=== PATIENT | male | born 1980 | race Caucasian/White ===

== ENCOUNTER 2016-08-22 11:58 | Emergency (ER) | payer BC, OTHER ==
[2016-08-22] MEDS ORDERED: Sodium Chloride 0.9% 10 ML Syringe FLUSH SCH (12:30)
[2016-08-22 12:35] LABS: CHLORIDE,CL 103 mmol/L (98-107); SODIUM,NA 139 mmol/L (136-145)
--- NOTE | 2016-08-22 13:14 | EDM.PDOC ---
ED HPI GENERAL MEDICAL PROBLEM - General Chief Complaint: Neuro Symptoms/Deficits Stated Complaint: left tongue and arm numb, WALTER, dizzy Time Seen by Provider: 08/22/16 12:19 Source of Information: Reports: Patient History Limitations: Reports: No limitations - History of Present Illness INITIAL COMMENTS - FREE TEXT/NARRATIVE: Patient presented to ER with complaint of left arm numbness, numbness of left side of tongue, seeing spots, and feeling dizzy/lightheaded. This began around 0830 this morning. At one point he had hard time seeing. Drove self to ER. Says symptoms have improved and at time of arrival had only headache remaining. Took Tylenol earlier. Initially evaluated by nurse and stroke code called. Patient taken right to CT. Once he returned from CT additional history collected. Patient says that he had similar episode around six months ago. Had CT scan of head at [facility] and was told to see a specialist, which he did not do. He could not recall why they wanted him to see specialist. This was not mentioned during initial intake evaluation when he first came to ER. Additionally, he has had similar episodes over the past 15 or so years, starting at about age 20. All episodes involve similar symptoms, including headache (described as being bilateral/posterior in location), numbness and weakness of arms (more so than legs), and visual changes. He describes vision changes as being like there are "clouds" in vision. Has not been seen by an MD for this prior to 6 months ago. No mention of other visits/testing from patient. Past medical history overall unremarkable otherwise. Employed at [employer]. Nothing specific triggers episodes, including change in positions, level of activity, or bending over. Nothing specific helps them. They last anywhere from 30-60min to 3 days. Family history includes strokes in father starting around age 70, and an uncle that from a brain "blood vessel issue" at age 35. At times he has felt as though he may pass out during an episode, but as of yet has not done so. Episodes have happened while patient has been driving, and during work. He manages to continue to work despite having symptoms. Non-smoker but did smoke in the past. Occipital Headache Pain Score (Numeric/FACES): 5 - Related Data Allergies Allergy/AdvReac Type Severity Reaction Status Date / Time No Known Allergies Allergy Verified 08/22/16 12:09 Home Meds: Home Meds Aspirin 81 mg PO BRK 08/22/16 [History] Omeprazole Magnesium [Prilosec Otc] 20 mg PO DAILY 08/22/16 [History] Past Medical History Gastrointestinal History: Reports: GERD Neurological History: Reports: Other (see below) (See HPI) Social & Family History - Tobacco Use Smoking Status *Q: Former Smoker Used Tobacco, but Quit: Yes Month Tobacco Last Used: unk ED ROS GENERAL - Review of Systems Review Of Systems: See Below Constitutional: Reports: no symptoms HEENT: Reports: Vision change (See HPI). Denies: Dental pain, Ear pain, Eye pain, Nose pain, Sinus problem, Vertigo Respiratory: Reports: No Symptoms Cardiovascular: Reports: No symptoms GI/Abdominal: Reports: No symptoms : Reports: no symptoms Musculoskeletal: Reports: no symptoms Skin: Reports: no symptoms Neurological: Reports: Dizziness, Headache, Numbness, Paresthesia. Denies: Confusion, Syncope, Tingling, Trouble Speaking, Difficulty Walking, Weakness, Change in Speech, Gait Disturbance Psychiatric: Reports: No symptoms ED EXAM, NEURO - Physical Exam Exam: See Below Exam Limited By: No limitations General Appearance: alert, WD/WN, no apparent distress Eye Exam: bilateral eye: EOMI, normal inspection, PERRL Ears: normal external exam, normal canal, normal TMs Nose: normal inspection Throat/Mouth: Normal inspection, Normal oropharynx, Normal voice, No airway compromise Head Exam: atraumatic, normocephalic Neck: normal inspection, supple, non-tender, full range of motion Respiratory/Chest: no respiratory distress, lungs clear, normal breath sounds, no accessory muscle use Cardiovascular: regular rate, rhythm, no edema, bradycardia. No: systolic murmur GI/Abdominal: Normal Bowel Sounds, Soft, Non-Tender Neurological: alert, normal mood/affect, normal dorsiflexion, CN II-XII intact, normal plantar flexion, normal gait, normal reflexes, no motor/sensory deficits , oriented x 3 DTR: 2+: bicep (R), bicep (L), patella (R), patella (L) Back Exam: No: CVA tenderness (L), CVA tenderness (R) Extremities: normal inspection, normal range of motion, non-tender, no pedal edema, normal capillary refill Psychiatric: normal affect, normal mood Skin Exam: Warm, Dry, Intact, Normal color EKG INTERPRETATION EKG Date: 08/22/16 Time: 12:09 Rhythm: other (Sinus Bradycardia) Rate (beats/min): 49 Weikert: normal P-wave: present QRS: normal ST-T: normal QT: normal Comparison: NA - no prior EKG Course - Vital Signs Last Recorded V/S: Last Vital Signs Temp 36.6 C 08/22/16 12:10 Pulse 53 L 08/22/16 12:39 Resp 14 08/22/16 12:39 BP 134/61 08/22/16 12:39 Pulse Ox 100 08/22/16 12:39 - Orders/Labs/Meds Orders: Active Orders 24 hr Category Date Time Status EKG Documentation Completion [RC] ASDIRECTED Care 08/22/16 12:08 Active Oxygen Therapy, ED [RC] ASDIRECTED Care 08/22/16 12:15 Active Peripheral IV Care [RC] . DIRECTED Care 08/22/16 12:15 Active Head wo Cont [CT] Stat Exams 08/22/16 12:02 Taken PROLACTIN [REF] Stat Lab 08/22/16 12:10 Received URINALYSIS W/MICROSCOPIC [UA W/MICROSCOPIC] [URIN] Stat Lab 08/22/16 12:05 Uncollected Sodium Chloride 0.9% [Saline Flush] Med 08/22/16 12:30 Active 10 ml FLUSH ASDIRECTED Medication Orders Sodium Chloride (Saline Flush) 10 ml FLUSH ASDIRECTED SEGUNDO Labs: Laboratory Tests 08/22/16 08/22/16 08/22/16 Range/Units 12:10 12:10 12:10 WBC 6.7 (4.0-10.2) K/uL RBC 5.03 (4.33-5.41) M/uL Hgb 15.1 (13.1-16.8) g/dL Hct 43.1 (39.0-49.0) % MCV 85.7 (84.0-98.0) fL MCH 30.0 (28.2-33.3) pg MCHC 35.0 (31.7-36.0) g/dL RDW 13.3 (11.2-14.1) % Plt Count 188 (150-350) K/uL Neut % (Auto) 55.8 (45.0-80.0) % Lymph % (Auto) 34.5 (10.0-50.0) % Rapides % (Auto) 7.9 (2.0-14.0) % Eos % (Auto) 1.2 (0.0-5.0) % Baso % (Auto) 0.6 (0.0-2.0) % Neut # (Auto) 3.76 (1.40-7.00) K/uL Lymph # (Auto) 2.32 (0.50-3.50) K/uL Rapides # (Auto) 0.53 (0.00-1.00) K/uL Eos # (Auto) 0.08 (0.00-0.50) K/uL Baso # (Auto) 0.04 (0.00-0.20) K/uL PT 11.4 (9.8-11.7) SEC INR 1.1 APTT 25.9 (23.5-30.0) SEC D-Dimer, Quantitative (0-400) ng/mL Sodium (136-145) mmol/L Potassium (3.5-5.1) mmol/L Chloride (98-107) mmol/L Carbon Dioxide (21.0-32.0) mmol/L BUN (7-18) mg/dL Creatinine (0.51-1.17) mg/dL Est Cr Clr Drug Dosing mL/min Estimated GFR (MDRD) mL/min Glucose (74-106) mg/dL Calcium (8.5-10.1) mg/dL Magnesium (1.8-2.4) mg/dL Total Bilirubin (0.2-1.0) mg/dL AST (15-37) U/L ALT (12-78) U/L Alkaline Phosphatase (46-116) IU/L Creatine Kinase (26-308) U/L Creatine Kinase Index (0.0-2.5) % CK-MB (CK-2) (0.00-3.60) ng/mL Troponin I (0.000-0.056) ng/mL Ctr-O-Viafuebddof Pept (0-125) pg/mL Total Protein (6.4-8.2) g/dL Albumin (3.4-5.0) g/dL 08/22/16 08/22/16 Range/Units 12:10 12:10 WBC (4.0-10.2) K/uL RBC (4.33-5.41) M/uL Hgb (13.1-16.8) g/dL Hct (39.0-49.0) % MCV (84.0-98.0) fL MCH (28.2-33.3) pg MCHC (31.7-36.0) g/dL RDW (11.2-14.1) % Plt Count (150-350) K/uL Neut % (Auto) (45.0-80.0) % Lymph % (Auto) (10.0-50.0) % Rapides % (Auto) (2.0-14.0) % Eos % (Auto) (0.0-5.0) % Baso % (Auto) (0.0-2.0) % Neut # (Auto) (1.40-7.00) K/uL Lymph # (Auto) (0.50-3.50) K/uL Rapides # (Auto) (0.00-1.00) K/uL Eos # (Auto) (0.00-0.50) K/uL Baso # (Auto) (0.00-0.20) K/uL PT (9.8-11.7) SEC INR APTT (23.5-30.0) SEC D-Dimer, Quantitative < 100 (0-400) ng/mL Sodium 139 (136-145) mmol/L Potassium 4.3 (3.5-5.1) mmol/L Chloride 103 (98-107) mmol/L Carbon Dioxide 29.1 (21.0-32.0) mmol/L BUN 15 (7-18) mg/dL Creatinine 1.01 (0.51-1.17) mg/dL Est Cr Clr Drug Dosing 117.56 mL/min Estimated GFR (MDRD) > 60 mL/min Glucose 107 H (74-106) mg/dL Calcium 8.8 (8.5-10.1) mg/dL Magnesium 1.8 (1.8-2.4) mg/dL Total Bilirubin 0.5 (0.2-1.0) mg/dL AST 23 (15-37) U/L ALT 35 (12-78) U/L Alkaline Phosphatase 62 (46-116) IU/L Creatine Kinase 206 (26-308) U/L Creatine Kinase Index 0.5 (0.0-2.5) % CK-MB (CK-2) 1.00 (0.00-3.60) ng/mL Troponin I 0.000 (0.000-0.056) ng/mL Htk-S-Qgeawbrurvk Pept 36 (0-125) pg/mL Total Protein 7.8 (6.4-8.2) g/dL Albumin 4.5 (3.4-5.0) g/dL Meds: Medications Generic Name Dose Route Start Last Admin Trade Name Greg PRN Reason Stop Dose Admin Sodium Chloride 10 ml 08/22/16 12:30 Saline Flush FLUSH ASDIRECTED SEGUNDO - Radiology Interpretation Free Text/Narrative:: Radiology reviewed CT and noted type 1 Chiari malformation and felt that this could be cause of patient's intermittent symptoms. - Re-Assessments/Exams Free Text/Narrative Re-Assessment/Exam: 08/22/16 13:33 Patient observed for length of time. Noted to have heart rate that varied from 48-49 to 70. Glascow score/NIH stroke scale unremarkable. Continued to be free of complaints other than headache that he rated as a "3". Phone call placed to [facility]. Patient discussed with both Dr. Duque/Neurosurgery and (Neurology). Given that patient has no objective focal deficits or cranial nerve dysfunction, OK to treat as outpatient. Plan recommended was to arrange for MRI of head/Cspine as well as to get Neurology appointment. Neurology is to set patient up with Neurosurgery as needed. Free Text/Narrative Re-Assessment/Exam: 08/22/16 14:17 Patient ambulated without problem. Declines any medication for residual mild headache. Mild subjective feeling of light-headedness when standing but otherwise feels fine. No return of earlier complaints. Departure - Departure Time of Disposition: 14:13 Disposition: Home, Self-Care 01 Condition: good Clinical Impression: Chiari I malformation, Changes in vision, Paresthesia of upper extremity, Bradycardia Headache Qualifiers: Headache type: other headache syndrome Qualified Code(s): G44.89 - Other headache syndrome - Discharge Information Instructions: Chiari Malformation Referrals: PCP,Unknown [Ordering Only Provider] - Forms: ED Department Discharge Additional Instructions: Follow up as scheduled for MRI study of head/neck as well as with clinic. Referral to Neurology at [facility] made from ER. They are to contact you and set up an appointment for further evaluation. Do not drive or operate heavy machinery if you are having an episode. Follow up in ER if you have sudden worsening symptoms. - My Orders Last 24 Hours: My Active Orders 08/22/16 12:02 Head wo Cont [CT] Stat 08/22/16 12:05 URINALYSIS W/MICROSCOPIC [UA W/MICROSCOPIC] [URIN] Stat 08/22/16 12:08 EKG Documentation Completion [RC] ASDIRECTED 08/22/16 12:10 PROLACTIN [REF] Stat 08/22/16 12:15 Oxygen Therapy, ED [RC] ASDIRECTED Peripheral IV Care [RC] . DIRECTED 08/22/16 12:30 Sodium Chloride 0.9% [Saline Flush] 10 ml FLUSH ASDIRECTED - Assessment/Plan Last 24 Hours: My Active Orders 08/22/16 12:02 Head wo Cont [CT] Stat 08/22/16 12:05 URINALYSIS W/MICROSCOPIC [UA W/MICROSCOPIC] [URIN] Stat 08/22/16 12:08 EKG Documentation Completion [RC] ASDIRECTED 08/22/16 12:10 PROLACTIN [REF] Stat 08/22/16 12:15 Oxygen Therapy, ED [RC] ASDIRECTED Peripheral IV Care [RC] . DIRECTED 08/22/16 12:30 Sodium Chloride 0.9% [Saline Flush] 10 ml FLUSH ASDIRECTED
[2016-08-22 16:35] VITALS: BP 120/80
== END 2016-08-22 14:52 | disposition home or self-care (01) ==
LOC: LL.ED 11:58
DX: G93.5 Compression of brain (principal); H53.9 Unspecified visual disturbance; R20.2 Paresthesia of skin; R00.1 Bradycardia, unspecified; Z79.82 Long term (current) use of aspirin; Z87.891 Personal history of nicotine dependence
CPT/HCPCS: 36000; 36415; 70450; 80053; 82550; 82553; 83735; 83880; 84146; 84484; 85025; 85379; 85610; 85730; 93005; 99285

== ENCOUNTER 2020-12-15 13:56 | Emergency (ER) | payer OTHER ==
--- NOTE | 2020-12-15 14:18 | EDM.PDOC ---
ED HPI GENERAL MEDICAL PROBLEM - General Chief Complaint: Respiratory Problem Stated Complaint: fumes/smoke inhaled Time Seen by Provider: 12/15/20 14:05 Source of Information: Reports: Patient History Limitations: Reports: No Limitations - History of Present Illness INITIAL COMMENTS - FREE TEXT/NARRATIVE: Patient comes emergency department today from the local [facility] with concerns of an inhalation injury. This patient about 2 hours ago was at work when a lithium ion battery got overheated and started to smoke. He inhaled the fumes through his nose as well as his mouth. He had some burning searing sensation to his left nares as well as his throat. He has no difficulty breathing shortness of breath cough or congestion. No pain in his chest. No weakness dizziness lightheadedness. He has been able to eat and drink. He has no drooling. - Related Data Allergies Allergy/AdvReac Type Severity Reaction Status Date / Time No Known Allergies Allergy Verified 12/15/20 13:58 Home Meds: Home Meds Aspirin 81 mg PO BRK 08/22/16 [History] Omeprazole Magnesium [Prilosec Otc] 20 mg PO DAILY 08/22/16 [History] Past Medical History HEENT History: Reports: Impaired Vision Cardiovascular History: Reports: None Respiratory History: Reports: None Gastrointestinal History: Reports: GERD Genitourinary History: Reports: None Musculoskeletal History: Reports: Back Pain, Chronic Neurological History: Reports: Other (See Below) Psychiatric History: Reports: None Endocrine/Metabolic History: Reports: None Hematologic History: Reports: None Oncologic (Cancer) History: Reports: None Dermatologic History: Reports: None - Past Surgical History Musculoskeletal Surgical History: Reports: Other (See Below) Social & Family History - Family History Neurological: Reports: Cerebral Aneurysms, CVA, Other (See Below) Other Neurological Family History: father and uncle ED ROS GENERAL - Review of Systems Review Of Systems: Comprehensive ROS is negative, except as noted in HPI. ED EXAM, GENERAL - Physical Exam Exam: See Below Exam Limited By: No Limitations General Appearance: Alert, WD/WN, No Apparent Distress Eye Exam: Bilateral Eye: EOMI, PERRL Ears: Normal External Exam, Normal TMs Nose: Normal Inspection, Normal Mucosa, No Blood Throat/Mouth: Normal Inspection, Normal Lips, Normal Teeth, Normal Gums, Normal Oropharynx, Normal Voice, No Airway Compromise Head: Atraumatic, Normocephalic Neck: Normal Inspection, Supple, Non-Tender, Full Range of Motion Respiratory/Chest: No Respiratory Distress, Lungs Clear, Normal Breath Sounds, No Accessory Muscle Use, Chest Non-Tender Cardiovascular: Normal Peripheral Pulses, Regular Rate, Rhythm GI/Abdominal: Normal Bowel Sounds, Soft, Non-Tender (Male) Exam: Deferred Rectal (Males) Exam: Deferred Back Exam: Normal Inspection, Full Range of Motion Extremities: Normal Inspection, Normal Range of Motion, Non-Tender, No Pedal Edema, Normal Capillary Refill Neurological: Alert, Oriented, CN II-XII Intact, Normal Cognition, Normal Gait, No Motor/Sensory Deficits Psychiatric: Normal Affect, Normal Mood Skin Exam: Warm, Dry, Intact, Normal Color, No Rash Lymphatic: No Adenopathy Course - Vital Signs Last Recorded V/S: Last Vital Signs Temp 98.4 F 12/15/20 14:00 Pulse 64 12/15/20 14:30 Resp 18 12/15/20 14:15 BP 128/81 12/15/20 14:30 Pulse Ox 96 12/15/20 14:30 - Re-Assessments/Exams Free Text/Narrative Re-Assessment/Exam: I did speak with poison control. This was a lithium ion vapor that he inhaled. Is there is no signs of burn to the face his throat or nares and this is just most likely an irritant there is not much to do for it at this time. Drink lots of water and rinse the nares. I discussed with the patient that symptomatic management such as irrigating his throat some [id number] Maalox or Mylanta to help with the irritation of his throat and rinses sinuses with the irritation to help make his nose flush out the irritate. Anything different to recheck. He was comfortable with this plan and his questions answered. Departure - Departure Time of Disposition: 14:38 Disposition: Home, Self-Care 01 Clinical Impression: Inhalation of noxious fumes Qualifiers: Encounter type: initial encounter Injury intent: accidental or unintentional Qualified Code(s): T59.91XA - Toxic effect of unspecified gases, fumes and vapors, accidental (unintentional), initial encounter - Discharge Information Instructions: Chemical Inhalation Injury, Adult Referrals: Aurora Rodríguez PA [Primary Care Provider] - Forms: ED Department Discharge Additional Instructions: Make sure and drink plenty of fluids today. Maalox or Mylanta swish and swallow. OTC Nasal saline rinse or gel for discomfort. Return to the ED if new or worsening symptoms. Contact poison control if any continued symptoms. They are aware of your visit today. Sepsis Event Note (ED) - Evaluation Sepsis Screening Result: No Definite Risk - Focused Exam Vital Signs: Vital Signs Temp Pulse Resp BP Pulse Ox 12/15/20 14:30 64 128/81 96 12/15/20 14:15 67 18 128/79 95 12/15/20 14:00 98.4 F 63 18 126/84 97
[2020-12-15 15:07] VITALS: BP 128/81; PULSE 64
== END 2020-12-15 14:45 | disposition home or self-care (01) ==
LOC: LL.ED 13:56
DX: T59.891A Toxic effect of other specified gases, fumes and vapors, accidental (unintentional), initial encounter (principal); K21.9 Gastro-esophageal reflux disease without esophagitis; Z79.82 Long term (current) use of aspirin; Z79.899 Other long term (current) drug therapy
CPT/HCPCS: 99283

== ENCOUNTER 2021-08-21 18:41 | Observation (INO) | payer BC, OTHER ==
[2021-08-21] MEDS ORDERED: GI Cocktail Oral Solution 30 ML PO ONE (18:54)
[2021-08-21] MEDS ORDERED: Pantoprazole 40 MG Vial IVPUSH ONE (18:55)
[2021-08-21] MEDS ORDERED: Sodium Chloride 0.9% 1,000 ML IV ONE ×2 (18:56→20:01)
[2021-08-21] MEDS ORDERED: Ondansetron 4 MG/2 ML SDV IVPUSH ONE (18:56)
[2021-08-21] MEDS: Sodium Chloride 0.9% 10 ML Syringe FLUSH PRN ×2 (19:01→21:12)
[2021-08-21 19:35] LABS: ANION GAP 13.3 meq/L (7-15); CHLORIDE,CL 99 mmol/L (98-107); SODIUM,NA 138 mmol/L (136-145)
[2021-08-21] MEDS ORDERED: HYDROmorphone 0.5 MG/0.5 ML Syringe IVPUSH ONE (20:45)
[2021-08-21] MEDS ORDERED: Promethazine 25 MG/ML SDV IM ONE (20:45)
[2021-08-21 22:46] VITALS: PULSE 55
[2021-08-21 23:05] VITALS: BP 164/88
== END 2021-08-21 22:30 | disposition home or self-care (01) ==
LOC: LL.ED 18:41 → LL.MS 20:30
PROVIDERS: ADMIT Emergency Medicine; ATTEND Emergency Medicine
DX: E86.0 Dehydration (principal); E83.42 Hypomagnesemia; F17.210 Nicotine dependence, cigarettes, uncomplicated; H54.7 Unspecified visual loss; R10.9 Unspecified abdominal pain; K21.9 Gastro-esophageal reflux disease without esophagitis; Z79.899 Other long term (current) drug therapy
CPT/HCPCS: 36415; 74019; 80053; 82150; 83605; 83690; 83735; 85025; 85610; 96365; 96372; 96375; 99284; 99285; A9270; C9113; J1170; J2405; J2550; J3475; J3490; J7030

== ENCOUNTER 2025-01-02 11:11 | Inpatient (IN) | payer BC ==
[2025-01-02] MEDS: Ondansetron 4 MG/2 ML SDV IVPUSH ONE (11:35)
[2025-01-02] MEDS: Aluminum Hydroxide/Magnesium Hydroxide/Simethicone Susp 30 ML Cup PO ONE (11:41)
[2025-01-02] MEDS: Lidocaine 2% Viscous Solution 15 ML UD PO ONE (11:41)
[2025-01-02 11:45] LABS: BASOPHILS ABSOLUTE AUTO 0.04 K/uL (0.00-0.20); BASOPHILS PERCENT AUTO 0.6 % (0.0-2.0); EOSINOPHILS ABSOLUTE AUTO 0.02 K/uL (0.00-0.50); EOSINOPHILS PERCENT AUTO 0.3 % (0.0-5.0); IMMATURE GRAN ABSOLUTE AUTO 0.01 10^3/uL (0.00-0.04); IMMATURE GRAN PERCENT AUTO 0.1 % (0.0-0.4); LYMPHOCYTES ABSOLUTE AUTO 1.48 K/uL (0.50-3.50); LYMPHOCYTES PERCENT AUTO 20.9 % (10.0-50.0); MONOCYTES ABSOLUTE AUTO 0.54 K/uL (0.00-1.00); MONOCYTES PERCENT AUTO 7.6 % (2.0-14.0); NEUTROPHILS ABSOLUTE AUTO 4.98 K/uL (1.40-7.00); NEUTROPHILS PERCENT AUTO 70.5 % (45.0-80.0); PLATELET COUNT,PLT 297 K/uL (150-350); RED BLOOD CELL COUNT 5.27 M/uL (4.33-5.41); RED CELL DISTRIBUTION WIDTH 12.5 % (11.2-14.1); WHITE BLOOD CELL COUNT,WBC 7.1 K/uL (4.0-10.2)
[2025-01-02 12:03] LABS: ALANINE AMINOTRANSFERASE,ALT 42.0 U/L (12-78); ASPARTATE AMNIOTRANSFERASE,AST 27.0 U/L (15-37); BILIRUBIN TOTAL 0.8 mg/dL (0.2-1.0); BLOOD UREA NITROGEN,BUN 8.0 mg/dL (7-18); CARBON DIOXIDE,CO2 25.1 mmol/L (21.0-32.0); CHLORIDE,CL 101.0 mmol/L (98-107); CREATININE 1.03 mg/dL (0.51-1.17); EST CRCL DRUG DOSING (CG) 106.41 mL/min; GLUCOSE RANDOM 142.0 mg/dL (70-99); POTASSIUM,K 3.7 mmol/L (3.5-5.1); PROTEIN TOTAL,TP 8.2 g/dL (6.4-8.2); SODIUM,NA 139.0 mmol/L (136-145)
[2025-01-02 12:04] LABS: ESTIMATED GFR 92.0 mL/min (>=60)
[2025-01-02] MEDS: Promethazine 25 MG/ML SDV IM ONE (12:46)
[2025-01-02] MEDS: Ketorolac 15 MG/ML SDV IVPUSH ONE (12:48)
[2025-01-02] MEDS: Ondansetron 4 MG/2 ML SDV ONE (13:03)
[2025-01-02 14:37] LABS: APPEARANCE,URINE CLEAR; GLUCOSE,URINE NEGATIVE (NEGATIVE); OCCULT BLOOD,URINE NEGATIVE (NEGATIVE)
[2025-01-02 14:54] LABS: AMPHETAMINES SCREEN, URINE NEGATIVE (NEGATIVE); COCAINE METABOLITES,URINE NEGATIVE (NEGATIVE); EDDP,URINE SCREEN NEGATIVE (NEGATIVE); METHAMPHETAMINES SCREEN, URINE NEGATIVE (NEGATIVE); OXYCODONE SCREEN,URINE NEGATIVE (NEGATIVE); TCA SCREEN,URINE NEGATIVE (NEGATIVE); THC SCREEN,URINE 50 NG/ML POSITIVE (NEGATIVE)
[2025-01-02 14:55] LABS: BUPRENORPHINE SCREEN,URINE NEGATIVE (NEGATIVE)
[2025-01-02 15:17] LABS: SQUAMOUS EPITHELIAL CELLS,UR NOT SEEN /HPF (NOT SEEN)
[2025-01-02] MEDS: Prochlorperazine 5 MG in Sodium Chloride 0.9% 100 ML IV PRN (16:18)
[2025-01-02] MEDS: Sucralfate Suspension 1 GM/10 ML Cup PO SCH (17:20)
[2025-01-02] MEDS ORDERED: Iopamidol 612 MG/ML 100 ML Bottle IVPUSH STA (19:19)
[2025-01-03 08:49] LABS: BASOPHILS ABSOLUTE AUTO 0.03 K/uL (0.00-0.20); BASOPHILS PERCENT AUTO 0.4 % (0.0-2.0); EOSINOPHILS ABSOLUTE AUTO 0.03 K/uL (0.00-0.50); EOSINOPHILS PERCENT AUTO 0.4 % (0.0-5.0); IMMATURE GRAN ABSOLUTE AUTO 0.01 10^3/uL (0.00-0.04); IMMATURE GRAN PERCENT AUTO 0.1 % (0.0-0.4); LYMPHOCYTES ABSOLUTE AUTO 2.00 K/uL (0.50-3.50); LYMPHOCYTES PERCENT AUTO 29.4 % (10.0-50.0); MONOCYTES ABSOLUTE AUTO 0.48 K/uL (0.00-1.00); MONOCYTES PERCENT AUTO 7.0 % (2.0-14.0); NEUTROPHILS ABSOLUTE AUTO 4.26 K/uL (1.40-7.00); NEUTROPHILS PERCENT AUTO 62.7 % (45.0-80.0); PLATELET COUNT,PLT 242 K/uL (150-350); RED BLOOD CELL COUNT 4.75 M/uL (4.33-5.41); RED CELL DISTRIBUTION WIDTH 12.6 % (11.2-14.1); WHITE BLOOD CELL COUNT,WBC 6.8 K/uL (4.0-10.2)
[2025-01-03 09:41] LABS: BLOOD UREA NITROGEN,BUN 7.0 mg/dL (7-18); CARBON DIOXIDE,CO2 30.5 mmol/L (21.0-32.0); CHLORIDE,CL 103.0 mmol/L (98-107); CREATININE 1.09 mg/dL (0.51-1.17); EST CRCL DRUG DOSING (CG) 100.55 mL/min; GLUCOSE RANDOM 130.0 mg/dL (70-99); POTASSIUM,K 4.3 mmol/L (3.5-5.1); SODIUM,NA 139.0 mmol/L (136-145); TSH ULTRASENSITIVE 0.301 mIU/mL (0.358-3.740)
[2025-01-03 09:58] LABS: ESTIMATED GFR 86.0 mL/min (>=60)
[2025-01-03] MEDS: Ketorolac 15 MG/ML SDV IVPUSH PRN (15:00)
[2025-01-03] MEDS: Ondansetron 4 MG/2 ML SDV IVPUSH PRN (16:20)
[2025-01-03 17:48] VITALS: BP 124/84; PULSE 77
== END 2025-01-03 17:10 | disposition home or self-care (01) | DRG 139 ==
LOC: LL.ED 11:11 → LL.MS 14:13
PROVIDERS: ADMIT Emergency Medicine; ATTEND Emergency Medicine
DX: J18.9 Pneumonia, unspecified organism (principal); I10 Essential (primary) hypertension; R79.89 Other specified abnormal findings of blood chemistry; K21.9 Gastro-esophageal reflux disease without esophagitis; H54.7 Unspecified visual loss; M54.9 Dorsalgia, unspecified; G89.29 Other chronic pain; E86.0 Dehydration; R07.9 Chest pain, unspecified; R00.1 Bradycardia, unspecified; E05.90 Thyrotoxicosis, unspecified without thyrotoxic crisis or storm; Z79.899 Other long term (current) drug therapy; Z88.0 Allergy status to penicillin; Z88.8 Allergy status to other drugs, medicaments and biological substances
CPT/HCPCS: 36415; 71046; 71260; 74177; 80048; 80053; 80305-QW; 81001; 82150; 83605; 83690; 83735; 84443; 84484; 85025; 87070; 87205; 87426-QW; 87899; 93005; 94640; 96361; 96372; 96374; 96375; 99223; 99239; 99285-25; A9270-GY; J0456; J0780; J1630; J1885; J2405; J2470; J2550; J7030; J7050; Q9967